=== PATIENT | male | born 2005 | race African-American/Black ===

== ENCOUNTER 2025-04-16 19:14 | Emergency (ER) | payer SELFPAY ==
[~2025-04-16] VITALS: Ht 182.9 cm; Wt 71.0 kg
[~2025-04-16 19:14] MED LIST: ALBUTEROL INHALER
[2025-04-16 19:39] VITALS: O2SAT 100
[2025-04-16] MEDS ORDERED: IBUPROFEN 600MG TABLET PO ONE (20:00)
[2025-04-16] MEDS ORDERED: IBUP-1455 MT (20:12)
[2025-04-16] MEDS ORDERED: HYDROCODONE/ACETAMINOPHEN 5/325MG TABLET PO ONE (20:15)
[2025-04-16] MEDS: HYDROCODONE/ACETAMINOPHEN 5/325MG TABLET PO SCH (21:36)
[2025-04-16] MEDS: IBUPROFEN 600MG TABLET PO SCH (21:44)
[2025-04-16 22:24] VITALS: BP 156/90; PULSE 89; RESP 15; TEMP 37; O2SAT 99
== END 2025-04-16 22:26 | disposition home or self-care (01) ==
LOC: ER 19:14
DX: S82.209A Unspecified fracture of shaft of unspecified tibia, initial encounter for closed fracture (principal); J45.909 Unspecified asthma, uncomplicated; Z90.89 Acquired absence of other organs; Z88.0 Allergy status to penicillin; Z79.899 Other long term (current) drug therapy; X50.1XXA Overexertion from prolonged static or awkward postures, initial encounter; Y93.67 Activity, basketball; Y92.89 Other specified places as the place of occurrence of the external cause; Y99.8 Other external cause status
CPT/HCPCS: 73562; 29505; 99283; Z7610